=== PATIENT | male | born 1980 | race Caucasian/White ===

== ENCOUNTER 2016-11-03 12:07 | Emergency (ER) | payer OTHER ==
[~2016-11-03] VITALS: Ht 170.2 cm; Wt 71.7 kg
[2016-11-03 13:09] LABS: BASOPHIL % 0.6 % (0-2); PLATELET COUNT 383 x10^3mcL (130-400); RED CELL DISTRIBUTION WIDTH 13.3 % (11.5-14.5)
[2016-11-03 13:20] LABS: CALCIUM 9.7 mg/dL (8.5-10.1); CARBON DIOXIDE 27.1 mmol/L (21-32); CHLORIDE SERUM 98 mmol/L (98-107); GFR1 > 60 mL/min; GLUCOSE SERUM 132 mg/dL (74-106); POTASSIUM SERUM 4.1 mmol/L (3.5-5.1); SODIUM SERUM 135 mmol/L (136-145)
[2016-11-03 13:24] LABS: ALKALINE PHOSPHATASE 120 U/L (46-116); ALT/SGPT 108 U/L (16-63); AST/SGOT 35 U/L (15-37); BILIRUBIN TOTAL 0.9 mg/dL (0.20-1.00); TOTAL PROTEIN, SERUM 7.9 g/dL (6.4-8.2)
[2016-11-03 13:26] LABS: ALBUMIN 3.1 g/dL (3.4-5.0)
[2016-11-03 14:24] VITALS: BP 114/66
== END 2016-11-03 15:29 | disposition home or self-care (01) ==
LOC: ED 12:07
PROVIDERS: Emergency Medicine
DX: J18.9 Pneumonia, unspecified organism (principal); J45.909 Unspecified asthma, uncomplicated; Z79.52 Long term (current) use of systemic steroids
CPT/HCPCS: 36415; 85378; Q0092; Q9967

== ENCOUNTER 2016-11-09 20:42 | Inpatient (IN) | payer OTHER ==
[~2016-11-09] VITALS: Ht 170.2 cm; Wt 73.5 kg
--- NOTE | 2016-11-09 22:37 | NUR ---
MSE COMPLETED BY DR LADD
--- NOTE | 2016-11-09 22:44 | NUR ---
XRAY AND RT AT BEDSIDE
--- NOTE | 2016-11-09 22:55 | NUR ---
PT MEDICATED WITH 1GRAM TYLENOL PO FOR A TEMP OF 101.1
[2016-11-09 23:10] LABS: RED CELL DISTRIBUTION WIDTH 13.4 % (11.5-14.5)
[2016-11-09 23:22] LABS: CALCIUM 8.4 mg/dL (8.5-10.1); CARBON DIOXIDE 26.6 mmol/L (21-32); CHLORIDE SERUM 98 mmol/L (98-107); CREATININE SERUM 0.8 mg/dL (0.7-1.3); GFR1 > 60 mL/min; GLUCOSE SERUM 121 mg/dL (74-106); POTASSIUM SERUM 3.6 mmol/L (3.5-5.1); SODIUM SERUM 133 mmol/L (136-145)
--- NOTE | 2016-11-09 23:23 | NUR ---
BREATHING TX IN PROGRESS
[2016-11-09 23:24] LABS: PLATELET COUNT 537 x10^3mcL (130-400)
[2016-11-09 23:26] LABS: ALKALINE PHOSPHATASE 103 U/L (46-116); ALT/SGPT 70 U/L (16-63); AST/SGOT 20 U/L (15-37); BILIRUBIN TOTAL 0.5 mg/dL (0.20-1.00); TOTAL PROTEIN, SERUM 6.9 g/dL (6.4-8.2)
[2016-11-09 23:27] LABS: ALBUMIN 2.6 g/dL (3.4-5.0)
[2016-11-09 23:36] LABS: microscopic required? NO
--- NOTE | 2016-11-09 23:38 | NUR ---
ROCEPHIN INFUSING VIA IV PUMP PER MD ORDERS. PT EDUCATED ON S/S OF ADVERSE REACTIONS, VERBALIZED UNDERSTANDING. CALL ZAZUETA WITHIN REACH, NO DISTRESS NOTED
[2016-11-10] VITALS (8 sets, daily range): BP systolic 92–117; BP diastolic 42–64
[2016-11-10 00:11] LABS: UA SPECIFIC GRAVITY <=1.005 (1.005-1.035); urine erythrocyte NEGATIVE (NEGATIVE)
--- NOTE | 2016-11-10 00:58 | NUR ---
REPORT CALLED TO KELLI TO ASSUME CARE OF PT
[2016-11-10 01:00] LABS: BAND NEUTROPHIL 3 % (0-10); METAMYELOCTE 5 % (0-2); MONOCYTE 5 % (0-7); SEGMENTED NEUTROPHILS 78 % (37-75)
[2016-11-10 01:02] LABS: PLATELET MORPHOLOGY PLATELETS INCREASED; rbc morphology (normal/abnorm) NORMAL (NORMAL)
--- NOTE | 2016-11-10 01:20 | NUR ---
REC'D PT FROM ER VIA [facility]RE[facility]A. PT IS AAOX4. TELE #33 NSR. LUNG SOUNDS CLEAR. NO SOB NOTED. PT ON 2L O2 VIA NC. PT C/O 8/10 CHEST PAIN WHEN COUGHING. BS ACTIVE X4. VOIDS FREELY. IV NOTED TO LFA. INTACT AND PATENT. ORIENTED PT TO CALL LIGHT. BED IN LOWEST POSITION. WILL ENDORSE TO PRIMARY RN.
--- NOTE | 2016-11-10 02:24 | NUR ---
IVF NS STARTED @ 126CC/HR IV ACCESS @ LFA PATENT NON INFIL, SCD'S FOR DVT PROPHYLAXIS, PT ON [id number] 02 @ 2L/MIN NC NO DISTRESS, NO WHEEZES AT THIS TIME, RT PROT FOR HHN TX, PT DENIES PAIN, SNACKS SERVED, TELE @ 38 INPLACED, CALL LIGHT AT REACH, CONT TO MONITOR.
[2016-11-10 03:23] LABS: T3 TOTAL 0.98 ng/mL
[2016-11-10 03:25] LABS: CHOLESTEROL/HDL RATIO 4.1; PHOSPHOROUS 3.1 mg/dL (2.5-4.9)
[2016-11-10 03:30] LABS: FREE T4 1.38 ng/dL (0.76-1.46); FREE THYROXINE INDEX 2.8 ug/dL (1.4-4.5)
--- NOTE | 2016-11-10 04:34 | NUR ---
PT C/O PAIN LOWER BACK MOSTLY ON THE LEFT FLANK 10/28 PER ASSESSMENT NORCO PO GIVEN PER PRN ORDER, PT ALSO CLAIMED HAVING TROUBLE BREATHING WITH CHEST CONGESTION AND NON PRODUCTIVE COUGHING, 02 SAT 93% WITH 2L 02/NC, INCREASE 02 TO 3L, RESP THERAPIST MADE AWARE FOR TX, CONT TO MONITOR.
--- NOTE | 2016-11-10 07:00 | NUR ---
PT C/O SOB WITH CHEST CONGESTION AND NON PRODUCTIVE COUGHING CAR OILER PROVIDED HHN TX WHICH IMPROVED RESP, CONT TO UTILIZED 02 @ 2L/MIN CONT TO MONITOR, ENDORSED FOR F/U.
--- NOTE | 2016-11-10 07:15 | NUR ---
PT SEEN SITTING ON BED. PT REPORTED BREATHING TREATMENT GIVEN, SOB IS GOT CONTROLLED. PT BREATHING ON O2 2L VIA NC, EVEN, MILD LABORED NOTED WHILE PT TALKING. IV SITE PATENT, INTACT. IVF INFUSING WELL.
--- NOTE | 2016-11-10 15:16 | NUR ---
RANDOMLY CHECKED PT. PT IS HAVING FEVER 102.2, TYLENOL 650 MG GIVEN AND COOLING MEASURES STARTED. WILL CONITNUE TO MONITOR.
--- NOTE | 2016-11-10 18:28 | NUR ---
PT'S FAMILY MEMBER AT BED SIDE. RECHECKED PT'S TEMP 98.1. PT NO COMPLAIN OF PAIN AT THIS TIME. PT BREATHING ON O2 2L VIA NC. EVEN, UNLABORED. PT STATED COUGHING IS UNDER CONTROLLED THOUGH DAY. NO SOB NOTED. PT'S SPUTUM CULTURE WAS COLLECTED AND SENT TO LAB. IV SITE PATENT, INTACT. IVF INFUSING WELL.
--- NOTE | 2016-11-10 19:59 | NUR ---
THE PT IS AAOX4. LUNG SOUNDS ARE CTA ON 2LNC. ABD IS SOFT, ROUND, AND NON-TENDER. PT IS ON TELE 33 WITH SINUS TACH CURRENTLY AT 101. THE PT DENIES ANY PAIN AT THIS TIME. PT HAS IV IN LFA INFUSING 100ML/HR NS. THERE IS NO EDEMA PRESENT AND THE PULSES ARE PALPABLE. CALL LIGHT WITHIN REACH. WILL CONTINUE TO MONITOR.
[2016-11-10 23:40] LABS: AMPHETAMINE QUAL UR NONE DETECTED (NEG <=1000)
--- NOTE | 2016-11-11 00:43 | NUR ---
PT IS RESTING COMFORTABLY WITH NO SIGNS OF ACUTE DISTRESS. BED IN LOWEST POSITION AND CALL LIGHT IS WITHIN REACH. WILL CONTINUE TO MONITOR.
--- NOTE | 2016-11-11 06:06 | NUR ---
PT IS RESTING COMFORTABLY IN BED. ALL NEEDS HAVE BEEN MET THROUGHOUT THE NIGHT. THE PT IS IN NO ACUTE DISTRESS. THE PT STATES THAT HE FEELS A LITTLE CONGESTED. I INFORMED HIM THAT I COULD REQUEST RT TO COME NOW OR HE COULD WAIT FOR HIS SCHEDULED 0800 BREATHING TREATMENT. THE PT OPTED TO WAIT FOR TREATMENT. WILL ENDORSE TO MORNING SHIFT.
[2016-11-11 06:11] VITALS: BP 105/54
[2016-11-11 06:32] LABS: RED CELL DISTRIBUTION WIDTH 13.4 % (11.5-14.5)
[2016-11-11 07:00] LABS: CALCIUM 8.1 mg/dL (8.5-10.1); CARBON DIOXIDE 27.8 mmol/L (21-32); CHLORIDE SERUM 103 mmol/L (98-107); CREATININE SERUM 0.8 mg/dL (0.7-1.3); GFR1 > 60 mL/min; GLUCOSE SERUM 110 mg/dL (74-106); MAGNESIUM 2.3 mg/dL (1.8-2.4); PHOSPHOROUS 2.8 mg/dL (2.5-4.9); POTASSIUM SERUM 4.1 mmol/L (3.5-5.1); SODIUM SERUM 135 mmol/L (136-145)
--- NOTE | 2016-11-11 07:25 | NUR ---
PT SITTING IN BED. ON2LNC. REPORTS MILD EFFORT TO BREATH. STATES WILL WAIT FOR SCHEDULED BREATHING TREATMENT. IV INFUSING WELL TO LFA #20 NS AT 100ML/HR. BED IN LOWEST POSITION, CALL LIGHT WITHIN REACH. EXPLAINED TO PATIENT NEED FOR SPUTUM.
[2016-11-11 07:28] LABS: PLATELET COUNT 530 x10^3mcL (130-400)
[2016-11-11 10:53] LABS: BAND NEUTROPHIL 3 % (0-10); BASOPHIL 0 % (0-2); METAMYELOCTE 1 % (0-2); MONOCYTE 5 % (0-7); SEGMENTED NEUTROPHILS 80 % (37-75)
[2016-11-11 10:56] LABS: PLATELET MORPHOLOGY PLATELETS INCREASED
[2016-11-11 11:11] VITALS: BP 110/61
--- NOTE | 2016-11-11 12:20 | NUR ---
PASSED [facility]ON MEDS. PT TOLERATED WELL. PT BREATHING ON ROOM AIR, DENIES ANY PAIN. DENIES SOB AT MOMENT. CALL LIGHT WITHIN REACH.
[2016-11-11 17:12] VITALS: BP 103/60
[2016-11-11 17:34] VITALS: BP 103/60
[2016-11-11] MEDS ORDERED: ROC1PM IV (17:38)
[2016-11-11] MEDS ORDERED: ZITHROMAX Z-PA250 MG PO (17:41)
[2016-11-11] MEDS ORDERED: LAC PO (17:43)
--- NOTE | 2016-11-11 18:20 | NUR ---
CHARGE NURSE INFORMED PT TO BE TRANSFERRED TO ACUTE CARE FACILITY [facility] DUE TO INSURANCE TERMS. PT INFORMED OF PLAN OF CARE. WITNESSED CONSENT FOR TRANSFER. PT TO BE TRANSFERRED TO [facility] BED 314B. REPORT CALLED TO [facility] GIVEN TO WINNIE BATES.
== END 2016-11-11 19:20 | disposition short-term general hospital (02) | DRG 871 ==
LOC: ED 20:42 → DU 11-10 00:19
PROVIDERS: Emergency Medicine; ADMIT Family Medicine
DX: A41.9 Sepsis, unspecified organism (principal); J18.9 Pneumonia, unspecified organism; E43 Unspecified severe protein-calorie malnutrition; J96.01 Acute respiratory failure with hypoxia; E87.1 Hypo-osmolality and hyponatremia; J45.909 Unspecified asthma, uncomplicated; E83.51 Hypocalcemia; R73.03 Prediabetes; D18.03 Hemangioma of intra-abdominal structures; D64.9 Anemia, unspecified; F17.200 Nicotine dependence, unspecified, uncomplicated; E78.5 Hyperlipidemia, unspecified
CPT/HCPCS: 36600; 82962; 83880; 84439; 94150; J0456; J0696; J7030; J7050; J7613; J7620; J7633; J7644; Q0092